=== PATIENT | male | born 1995 | race Asian ===

== ENCOUNTER 2019-04-13 20:18 | Emergency (ER) | payer MEDICAID ==
[~2019-04-13] VITALS: Ht 170.2 cm; Wt 77.1 kg
[2019-04-14 02:11] VITALS: BP 122/77
== END 2019-04-14 02:12 | disposition home or self-care (01) ==
LOC: ER 20:22
DX: M79.602 Pain in left arm (principal); F17.210 Nicotine dependence, cigarettes, uncomplicated; F12.10 Cannabis abuse, uncomplicated
CPT/HCPCS: 73090; 73200